=== PATIENT | female | born 1975 | race Caucasian/White ===

== ENCOUNTER 2021-07-31 19:46 | Emergency (ER) | payer OTHER ==
[~2021-07-31] VITALS: Ht 162.6 cm; Wt 68.0 kg
[2021-07-31] MEDS ORDERED: NORFLEX100MG PO (22:40)
[2021-07-31] MEDS ORDERED: KETO10TA2 PO (22:40)
== END 2021-07-31 23:21 | disposition home or self-care (01) ==
LOC: ER 19:46
DX: S60.221A Contusion of right hand, initial encounter (principal); S20.20XA Contusion of thorax, unspecified, initial encounter; W05.0XXA Fall from non-moving wheelchair, initial encounter; Y92.89 Other specified places as the place of occurrence of the external cause

== ENCOUNTER 2025-10-18 20:21 | Emergency (ER) | payer OTHER ==
[~2025-10-18] VITALS: Ht 162.6 cm; Wt 73.5 kg
[~2025-10-18 20:21] MED LIST: KETO10TA2 PO; NORFLEX100MG PO
[2025-10-18 21:04] VITALS: O2SAT 100
[2025-10-18] MEDS ORDERED: ACETAMINOPHEN 500 MG GEL..CAP PO STA (22:22)
[2025-10-18] MEDS ORDERED: LABETALOL HCL 20MG/4ML SYRINGE IV STA (22:23)
[2025-10-19] MEDS ORDERED: LABETALOL HCL 100 MG/20 ML ML ONE (00:47)
[2025-10-19] MEDS ORDERED: ACETAMINOPHEN 500 MG GEL..CAP PO ONE (00:48)
[2025-10-19 01:40] LABS: URINE APPEARANCE Clear; URINE BILIRRUBIN Negative (NEGATIVE); URINE BLOOD Trace; URINE COLOR Yellow; URINE GLUCOSE Negative (NEGATIVE); URINE KETONE Negative (NEGATIVE); URINE LEUKOCYTE Negative; URINE NITRATE Negative; URINE PROTEIN Negative (NEGATIVE); URINE UROBILINOGEN 0.2 E.U./dl
[2025-10-19 01:43] LABS: BASO % 0.8 % (0.1-1.2); EOS # 0.21 (0.04-0.54); EOS % 4.3 % (0.7-7.0); LYMPH # 1.92 (1.18-3.74); LYMPH % 39.3 % (19.3-53.1); MEAN PLATELET VOLUME 9.80 fl (9.4-12.4); MONO # 0.47 (0.24-0.82); MONO % 9.6 % (4.7-12.5); NEUT # 2.24 (1.56-6.13); NEUT % 45.8 % (34.0-71.1); RED CELL DISTRIBUTION WIDTH 13.6 % (11.6-14.4)
[2025-10-19 01:45] LABS: URINE BACTERIA 298.5 uL (0.0-1933); URINE EPITHELIAL CELLS 5.6 uL (0.0-38.8); URINE RBC 5.0 uL (0.0-20.8); URINE WBC 5.5 uL (0.0-23.2)
[2025-10-19 01:47] LABS: URINE CAST 0.14 uL (0.0-1.40)
[2025-10-19 01:57] LABS: ERYTHROCYTE SEDIMENTATION RATE 18 mm/hr (0-20)
[2025-10-19 02:01] LABS: INR 0.98
[2025-10-19 02:08] LABS: ALT/SGPT 38.0 U/L (12-78); AST/SGOT 30.0 U/L (15-37); BILIRUBIN TOTAL 0.45 mg/dL (0.3-1.2); BUN CREA RATIO 16.0 (7.0-25.0); CREATININE SERUM 0.61 mg/dL (0.55-1.02); GFR 103.82; GLOBULINA 3.6 G/DL (2.4-3.5); GLUCOSE FASTING 108.0 mg/dL (65-100); OSMOLALITY SERUM 281.0 MOSM/KG (275-295)
[2025-10-19 02:51] VITALS: BP 130/80
[2025-10-19] MEDS ORDERED: TOPROL XL100 M1 PO (03:12)
== END 2025-10-19 03:14 ==
LOC: ER 20:21
PROVIDERS: Physician Assistant Medical
DX: I16.1 Hypertensive emergency (principal); I10 Essential (primary) hypertension; R51.9 Headache, unspecified